=== PATIENT | female | born 1960 | race African-American/Black ===

== ENCOUNTER 2018-05-20 14:03 | Emergency (ER) | payer OTHER, MEDICAID ==
[~2018-05-20] VITALS: Ht 157.5 cm; Wt 50.0 kg
[2018-05-20 14:05] VITALS: BP 113/59
== END 2018-05-20 18:49 | disposition left against medical advice (07) ==
LOC: ER 14:03
DX: Z53.21 Procedure and treatment not carried out due to patient leaving prior to being seen by health care provider (principal)